=== PATIENT | male | born 1945 | race Caucasian/White ===

== ENCOUNTER 2017-04-27 12:38 | Inpatient (IN) | payer MEDICARE, MEDICAID ==
[2017-04-27] VITALS (16 sets, daily range): BP systolic 110–152; BP diastolic 58–86
[~2017-04-27] VITALS: Ht 182.9 cm; Wt 80.7 kg
[2017-04-27] MEDS ORDERED: cefazolin/dext.iso 2gm/50ml 50 ML IV ONE (12:59)
[2017-04-27] MEDS ORDERED: VANCOMYCIN INJ 1000 MG in NORMAL SALINE 250ml IV.SOLN IV ONE (12:59)
[2017-04-27] MEDS ORDERED: pregabalin 75mg capsule PO ONE (12:59)
[2017-04-27] MEDS ORDERED: duloxetine 20mg capsule.DR PO ONE (13:05)
[2017-04-27] MEDS ORDERED: ringers solution, lacted 1,000 ML IV SCH ×2 (13:15→18:27)
[2017-04-27] MEDS ORDERED: famotidine 20mg tablet PO ONE (13:15)
[2017-04-27] MEDS ORDERED: LIDOcaine 1% (10mg/ml) 2ml vial ONE (13:32)
[2017-04-27 13:44] LABS: PARTIAL THROMBOPLASTIN TIME 27 SECONDS (22-32)
[2017-04-27 13:48] LABS: ALANINE AMINOTRANSFERASE 30 U/L (12-78); ALBUMIN 3.2 G/DL (3.4-5.0); ALBUMIN/GLOBULIN RATIO 0.7 (1.1-1.5); ALKALINE PHOSPHATASE 81 IU/L (46-116); ANION GAP 6 (8-16); ASPARTATE AMINO TRANSFERASE 24 U/L (10-37); BILIRUBIN,TOTAL 0.5 MG/DL (0.1-1.0); BLOOD UREA NITROGEN 13 MG/DL (7-18); BUN/CREATININE RATIO 18.8 (5.4-32.0); CALCIUM 9.7 MG/DL (8.5-10.1); CHLORIDE 103 MMOL/L (99-107); CREATININE 0.69 MG/DL (0.60-1.10); GLUCOSE 101 MG/DL (70-104); POTASSIUM 3.9 MMOL/L (3.5-5.1); SODIUM 140 MMOL/L (135-145); TOTAL CARBON DIOXIDE 30.8 MMOL/L (24-32); TOTAL PROTEIN 8.1 G/DL (6.4-8.2); eGFR > 90 ML/MIN
[2017-04-27 13:49] LABS: BASOPHILS # (AUTO) 0.1 X10'3 (0-0.2); BASOPHILS % (AUTO) 0.7 % (0-1); EOSINOPHILS # (AUTO) 0.3 X10'3 (0-0.9); EOSINOPHILS % (AUTO) 3.2 % (0-6); HEMATOCRIT 39.7 % (42.0-52.0); HEMOGLOBIN 13.7 g/dl (14.0-17.9); LYMPHOCYTES # (AUTO) 3.1 X10'3 (1.1-4.8); LYMPHOCYTES % (AUTO) 38.7 % (21-51); MEAN CORPUSCULAR HEMOGLOBIN 30.6 PG (27.0-31.0); MEAN CORPUSCULAR HGB CONC 34.4 % (33.0-36.5); MEAN CORPUSCULAR VOLUME 88.9 FL (78-98); MEAN PLATELET VOLUME 7.3 FL (7.4-10.4); MONOCYTES # (AUTO) 0.6 X10'3 (0-0.9); MONOCYTES % (AUTO) 7.7 % (2-12); NEUTROPHILS # (AUTO) 3.9 X10'3 (1.8-7.7); NEUTROPHILS % (AUTO) 49.7 % (42-75); PLATELET COUNT 254 X10'3 (140-440); RED BLOOD COUNT 4.46 X10'6 (4.70-6.10); RED CELL DISTRIBUTION WIDTH 13.3 % (11.5-14.5); WHITE BLOOD COUNT 7.9 X10'3 (4.5-11.0)
[2017-04-27] MEDS ORDERED: TRAZ-146 PO (14:17)
[2017-04-27] MEDS ORDERED: CELE-85 PO (14:17)
[2017-04-27] MEDS ORDERED: HYDR-3972 PO (14:17)
[2017-04-27] MEDS ORDERED: OMEP-50 PO (14:17)
[2017-04-27] MEDS ORDERED: TAMS0.4C32 PO (14:17)
[2017-04-27] MEDS ORDERED: heparin 10,000 units/1 ML INJ ONE (14:33)
[2017-04-27] MEDS ORDERED: ROPIVAcaine 0.5% (5mg/ml) 30ml vial ONE ×2 (15:30→15:43)
[2017-04-27] MEDS ORDERED: ketorolac trometh. 30mg/ml inj. ONE (15:30)
[2017-04-27] MEDS ORDERED: midazolam 2 mg/2 ml injection ONE (16:09)
[2017-04-27] MEDS ORDERED: fentaNYL /PF 50mcg/ml 5ml ampule ONE (16:09)
[2017-04-27] MEDS ORDERED: propofol inj 20 ML IV ONE (16:09)
[2017-04-27] MEDS ORDERED: LIDOcaine 2% (20mg/ml) 5ml vial ONE (16:09)
[2017-04-27] MEDS ORDERED: sevoflurane 250ml liquid IH ONE (16:12)
[2017-04-27] MEDS ORDERED: fentaNYL/PF 50MCG/1 ML 2ML syringe ONE (17:05)
[2017-04-27] MEDS ORDERED: dexamethasone sod phosphate 4mg/ml inj. ONE (17:28)
[2017-04-27] MEDS ORDERED: magnesium hydroxide 30ml (MOM) UD suspension PO PRN (18:20)
[2017-04-27] MEDS ORDERED: HYDROcodone/acetaminophen 10/325mg tab PO PRN (18:20)
[2017-04-27] MEDS ORDERED: CADD PCA waste documentation MC PRN (18:20)
[2017-04-27] MEDS ORDERED: bisacodyl 10mg suppository rectal RC PRN (18:20)
[2017-04-27] MEDS ORDERED: ondansetron/PF 4mg/2ml inj IV PRN ×2 (18:20→18:30)
[2017-04-27] MEDS ORDERED: metoclopramide 5 mg/ml inj IV PRN (18:20)
[2017-04-27] MEDS ORDERED: diphenhydrAMINE 25mg capsule PO PRN ×2 (18:20)
[2017-04-27] MEDS ORDERED: acetaminophen 325mg tablet PO PRN (18:20)
[2017-04-27] MEDS ORDERED: naloxone 0.4 mg/ml inj IV PRN (18:20)
[2017-04-27] MEDS ORDERED: mag hydrox/Alum hydrox/simeth 30ml oral suspension PO PRN (18:20)
[2017-04-27] MEDS ORDERED: fentaNYL/PF 50MCG/1 ML 2ML syringe IV PRN (18:30)
[2017-04-27] MEDS ORDERED: HYDROmorphone inj. 0.5 MG/0.5 ML DISP.SYRIN IV PRN (18:30)
[2017-04-27] MEDS ORDERED: proCHLORperazine 10 MG/2 ml inj IV PRN (18:30)
[2017-04-27] MEDS: HYDROmorphone/NS 1 mg/ml CADD 50 ML IV SCH ×4 (19:00→23:00)
[2017-04-27] MEDS ORDERED: vancomycin/NS 1 GM ADD-VANTAGE 250 ML IV SCH (20:00)
[2017-04-27] MEDS: traZODone 50mg tablet PO SCH (21:52)
[2017-04-27] MEDS: tamsulosin 0.4mg capsule PO SCH (21:52)
[2017-04-27] MEDS: sennosides 8.6mg tablet PO SCH (21:52)
[2017-04-27] MEDS: celeCOXIB 100mg capsule PO SCH (21:52)
[2017-04-27] MEDS: ascorbic acid 500mg tablet PO SCH (21:58)
[2017-04-27] MEDS: sennosides/docusate sodium tablet PO SCH (21:58)
[2017-04-27] MEDS: potassium cl 20mEq in 1/2 NS 1,000 ML IV SCH (22:12)
[2017-04-28] MEDS: HYDROmorphone/NS 1 mg/ml CADD 50 ML IV SCH ×12 (01:45→23:00)
[2017-04-28] MEDS: potassium cl 20mEq in 1/2 NS 1,000 ML IV SCH ×3 (02:19→19:16)
[2017-04-28 04:00] VITALS: BP 112/64
[2017-04-28 06:23] LABS: BASOPHILS % (AUTO) 0.3 % (0-1); EOSINOPHILS # (AUTO) 0.1 X10'3 (0-0.9); EOSINOPHILS % (AUTO) 1.1 % (0-6); HEMATOCRIT 32.2 % (42.0-52.0); HEMOGLOBIN 11.1 g/dl (14.0-17.9); LYMPHOCYTES # (AUTO) 1.2 X10'3 (1.1-4.8); LYMPHOCYTES % (AUTO) 17.4 % (21-51); MEAN CORPUSCULAR HEMOGLOBIN 30.5 PG (27.0-31.0); MEAN CORPUSCULAR HGB CONC 34.5 % (33.0-36.5); MEAN CORPUSCULAR VOLUME 88.4 FL (78-98); MONOCYTES # (AUTO) 0.6 X10'3 (0-0.9); MONOCYTES % (AUTO) 9.1 % (2-12); NEUTROPHILS # (AUTO) 5.2 X10'3 (1.8-7.7); NEUTROPHILS % (AUTO) 72.1 % (42-75); PLATELET COUNT 218 X10'3 (140-440); RED BLOOD COUNT 3.64 X10'6 (4.70-6.10); WHITE BLOOD COUNT 7.2 X10'3 (4.5-11.0)
[2017-04-28 06:53] LABS: ANION GAP 5 (8-16); CHLORIDE 105 MMOL/L (99-107); POTASSIUM 4.6 MMOL/L (3.5-5.1); SODIUM 142 MMOL/L (135-145)
[2017-04-28 07:15] VITALS: BP 112/64
[2017-04-28] MEDS: cefazolin 1gm/NS 100mL 100 ML IV SCH ×2 (07:41)
[2017-04-28] MEDS: celeCOXIB 100mg capsule PO SCH ×2 (07:43→20:03)
[2017-04-28] MEDS: tamsulosin 0.4mg capsule PO SCH ×2 (07:43→20:03)
[2017-04-28] MEDS: enoxaparin 40mg/0.4ml syringe SQ SCH (07:43)
[2017-04-28] MEDS: ascorbic acid 500mg tablet PO SCH ×2 (07:44→20:03)
[2017-04-28] MEDS: sennosides/docusate sodium tablet PO SCH ×2 (07:44→20:03)
[2017-04-28] MEDS: pantoprazole 40mg Tablet.DR PO SCH (07:44)
[2017-04-28] MEDS: multivitamins, therapeutics tablet PO SCH (07:44)
[2017-04-28 11:23] VITALS: BP 88/47
[2017-04-28] MEDS: gabapentin 300mg capsule PO SCH (12:37)
[2017-04-28 15:20] VITALS: BP 93/47
[2017-04-28 18:00] VITALS: BP 117/61
[2017-04-28] MEDS: traZODone 50mg tablet PO SCH (20:03)
[2017-04-28] MEDS: sennosides 8.6mg tablet PO SCH (20:03)
[2017-04-28 22:00] VITALS: BP 107/55
[2017-04-29] MEDS: HYDROmorphone/NS 1 mg/ml CADD 50 ML IV SCH ×2 (01:00→03:00)
[2017-04-29] MEDS: potassium cl 20mEq in 1/2 NS 1,000 ML IV SCH (02:40)
[2017-04-29] MEDS: HYDROcodone/acetaminophen 10/325mg tab PO PRN ×3 (05:36→15:39)
[2017-04-29 06:00] VITALS: BP 111/65
[2017-04-29 06:04] LABS: BASOPHILS % (AUTO) 0.7 % (0-1); EOSINOPHILS # (AUTO) 0.2 X10'3 (0-0.9); EOSINOPHILS % (AUTO) 3.3 % (0-6); HEMATOCRIT 27.6 % (42.0-52.0); HEMOGLOBIN 9.4 g/dl (14.0-17.9); LYMPHOCYTES # (AUTO) 1.9 X10'3 (1.1-4.8); LYMPHOCYTES % (AUTO) 31.2 % (21-51); MEAN CORPUSCULAR HEMOGLOBIN 30.6 PG (27.0-31.0); MEAN PLATELET VOLUME 7.3 FL (7.4-10.4); MONOCYTES # (AUTO) 0.6 X10'3 (0-0.9); MONOCYTES % (AUTO) 9.6 % (2-12); NEUTROPHILS # (AUTO) 3.4 X10'3 (1.8-7.7); NEUTROPHILS % (AUTO) 55.2 % (42-75); PLATELET COUNT 181 X10'3 (140-440); RED BLOOD COUNT 3.06 X10'6 (4.70-6.10); RED CELL DISTRIBUTION WIDTH 13.4 % (11.5-14.5); WHITE BLOOD COUNT 6.2 X10'3 (4.5-11.0)
[2017-04-29] MEDS: gabapentin 300mg capsule PO SCH (07:40)
[2017-04-29] MEDS: ascorbic acid 500mg tablet PO SCH ×2 (07:40→20:12)
[2017-04-29] MEDS: celeCOXIB 100mg capsule PO SCH ×2 (07:40→20:12)
[2017-04-29] MEDS: tamsulosin 0.4mg capsule PO SCH ×2 (07:40→20:12)
[2017-04-29] MEDS: multivitamins, therapeutics tablet PO SCH (07:40)
[2017-04-29] MEDS: pantoprazole 40mg Tablet.DR PO SCH (07:40)
[2017-04-29] MEDS: enoxaparin 40mg/0.4ml syringe SQ SCH (07:41)
[2017-04-29 10:00] VITALS: BP 101/54
[2017-04-29] MEDS ORDERED: oxyCODONE/APAP 10/325mg tablet PO STA (17:37)
[2017-04-29] MEDS ORDERED: oxyCODONE/APAP 10/325mg tablet PO PRN (17:40)
[2017-04-29 18:00] VITALS: BP 103/55
[2017-04-29] MEDS: traZODone 50mg tablet PO SCH (20:12)
[2017-04-29] MEDS: sennosides 8.6mg tablet PO SCH (20:12)
[2017-04-29] MEDS: oxyCODONE/APAP 10/325mg tablet PO PRN (20:14)
[2017-04-29 21:45] VITALS: BP 95/48
[2017-04-30] MEDS: oxyCODONE/APAP 10/325mg tablet PO PRN ×4 (05:30→19:57)
[2017-04-30 06:00] VITALS: BP 116/66
[2017-04-30 07:28] LABS: BASOPHILS % (AUTO) 0.6 % (0-1); EOSINOPHILS # (AUTO) 0.4 X10'3 (0-0.9); EOSINOPHILS % (AUTO) 7.8 % (0-6); HEMATOCRIT 26.6 % (42.0-52.0); HEMOGLOBIN 9.1 g/dl (14.0-17.9); LYMPHOCYTES % (AUTO) 36.3 % (21-51); MEAN CORPUSCULAR HEMOGLOBIN 30.6 PG (27.0-31.0); MEAN CORPUSCULAR HGB CONC 34.1 % (33.0-36.5); MEAN CORPUSCULAR VOLUME 89.7 FL (78-98); MEAN PLATELET VOLUME 7.4 FL (7.4-10.4); MONOCYTES # (AUTO) 0.5 X10'3 (0-0.9); MONOCYTES % (AUTO) 9.6 % (2-12); NEUTROPHILS # (AUTO) 2.5 X10'3 (1.8-7.7); NEUTROPHILS % (AUTO) 45.7 % (42-75); PLATELET COUNT 177 X10'3 (140-440); RED BLOOD COUNT 2.97 X10'6 (4.70-6.10); WHITE BLOOD COUNT 5.5 X10'3 (4.5-11.0)
[2017-04-30] MEDS: ascorbic acid 500mg tablet PO SCH ×2 (08:07→19:55)
[2017-04-30] MEDS: pantoprazole 40mg Tablet.DR PO SCH (08:07)
[2017-04-30] MEDS: multivitamins, therapeutics tablet PO SCH (08:07)
[2017-04-30] MEDS: tamsulosin 0.4mg capsule PO SCH ×2 (08:07→19:54)
[2017-04-30] MEDS: celeCOXIB 100mg capsule PO SCH ×2 (08:07→19:54)
[2017-04-30] MEDS: gabapentin 300mg capsule PO SCH (08:07)
[2017-04-30] MEDS: enoxaparin 40mg/0.4ml syringe SQ SCH (08:12)
[2017-04-30 10:00] VITALS: BP 106/38
[2017-04-30 10:48] VITALS: BP 116/66
[2017-04-30 18:39] VITALS: BP 100/52
[2017-04-30] MEDS: sennosides 8.6mg tablet PO SCH (19:56)
[2017-04-30] MEDS: traZODone 50mg tablet PO SCH (19:56)
[2017-04-30 22:30] VITALS: BP 112/51
[2017-05-01] MEDS: oxyCODONE/APAP 10/325mg tablet PO PRN ×2 (04:52→10:27)
[2017-05-01 06:00] VITALS: BP 90/54
[2017-05-01] MEDS: celeCOXIB 100mg capsule PO SCH (07:38)
[2017-05-01] MEDS: enoxaparin 40mg/0.4ml syringe SQ SCH (07:38)
[2017-05-01] MEDS: pantoprazole 40mg Tablet.DR PO SCH (07:38)
[2017-05-01] MEDS: gabapentin 300mg capsule PO SCH (07:39)
[2017-05-01] MEDS: ascorbic acid 500mg tablet PO SCH (07:39)
[2017-05-01] MEDS: multivitamins, therapeutics tablet PO SCH (07:39)
[2017-05-01] MEDS: tamsulosin 0.4mg capsule PO SCH (07:40)
[2017-05-01] MEDS ORDERED: ENOX40DI11 SQ (07:44)
[2017-05-01] MEDS ORDERED: HYDR-3972 PO (07:44)
== END 2017-05-01 11:50 | disposition home health service (06) | DRG 470 ==
LOC: PAS IN 12:38 → EDSTATUS 16:00 → ORTHO 4S 19:34
PROVIDERS: ADMIT Orthopaedic Surgery; ATTEND Orthopaedic Surgery
PROC: 0SRR0J9 Replacement of Right Hip Joint, Femoral Surface with Synthetic Substitute, Cemented, Open Approach (ICD-10-PCS; principal; 2017-04-27 16:12)
DX: S72.001A Fracture of unspecified part of neck of right femur, initial encounter for closed fracture (principal); I48.91 Unspecified atrial fibrillation; D62 Acute posthemorrhagic anemia; F32.9 Major depressive disorder, single episode, unspecified; K21.9 Gastro-esophageal reflux disease without esophagitis; N40.0 Benign prostatic hyperplasia without lower urinary tract symptoms; M16.12 Unilateral primary osteoarthritis, left hip; Z96.651 Presence of right artificial knee joint; Z79.899 Other long term (current) drug therapy; W10.8XXA Fall (on) (from) other stairs and steps, initial encounter; Y93.89 Activity, other specified; Y92.89 Other specified places as the place of occurrence of the external cause; Y99.8 Other external cause status
CPT/HCPCS: 36415; 73502; 80051; 80053; 85025; 85610; 85730; 86885; 86900; 86901; 93005; 97110; 97116; 97161; 97530; A6250; A6255; A6258; A6449; A6455; A7000; C1713; C1758; C1776; J0690; J1100; J1170; J1644; J1650; J1885; J2001; J2250; J2704; J2795; J3010; J3370; J3490; J7030; J7120